=== PATIENT | female | born 1985 | race Caucasian/White ===

== ENCOUNTER 2023-08-25 08:06 | Outpatient (CLI) | payer OTHER ==
--- NOTE | 2023-08-25 14:36 | Ultrasound Report ---
PROCEDURE: Pelvic w/Transvaginal INDICATIONS: IRREGULAR MENSTRUATION TECHNIQUE: Real-time scanning was performed of the pelvic organs, with image documentation. Additional endovagi nal scanning was necessary due to incomplete visualization of the adnexal and endometrial structures by transabdominal scanning. COMPARISON: None. FINDINGS: Uterus: Uterus is anteverted and normal in size at 7.9 x 4.1 x 4.6 cm. The myometrium is homogeneou s. The endometrium measures 11.7 mm in combined thickness. Cervix and vagina are within normal limi ts. Ovaries: The right ovary measures 2.2 x 0.9 x 1.2 cm, with a calculated ovarian volume of 1.2 cc. T he left ovary measures 2.2 x 1.2 x 2.3 cm, with a calculated ovarian volume of 3.2 cc. The ovaries h ave a normal sonographic appearance. Less than 12 follicles can be seen in each ovary. No adnexal m asses are seen. No cystic lesions measuring greater than 3 cm. Other: No pathologic free abdominal or pelvic fluid. IMPRESSION: 1.Endometrial thickness is 11.7 mm. 2.Normal sonographic appearance of the bilateral ovaries. Reviewed by: Christiano Barnett MD on 08/25/2023 2:34 PM PDT Approved by: Christiano Barnett MD on 08/25/2023 2:34 PM PDT Station ID: [id number]
== END 2023-08-25 08:07 | disposition home or self-care (01) ==
LOC: DI 08:06
PROVIDERS: ATTEND Physician Assistant
DX: N92.6 Irregular menstruation, unspecified (principal)

== ENCOUNTER 2023-11-20 07:06 | Outpatient (CLI) | payer OTHER ==
[~2023-11-20 07:06] MED LIST: GADOTERATE MEGLUMINE 7.5 MMOL/15 ML VIAL ONE
[2023-11-20] MEDS: GADOTERATE MEGLUMINE 7.5 MMOL/15 ML VIAL IVP ONE (08:08)
--- NOTE | 2023-11-20 09:14 | MRI Report ---
PROCEDURE: Pelvis W/WO INDICATIONS: PELVIC PAIN CONTRAST: CLARISCAN 12.8 ML TECHNIQUE: Coronal ultra fast SE, sagittal breath-hold T2 FSE; axial T1 FSE with and without fat saturation thro ugh the pelvis. Optional long- and short-axis uterine nonbreath-hold T2 FSE through the uterus. Sag ittal or axial dynamic ultra fast GE during administration of contrast. Post-contrast axial or coron al ultra fast GE / 2-D spoiled GE with fat saturation from the iliac crests to the symphysis. Option al diffusion weighted imaging and ADC may be performed. COMPARISON: Pelvic ultrasound 08/25/2023. FINDINGS: Image quality: Excellent. Uterus: Uterus is retroverted and normal in size measuring 7.4 cm in length. Endometrium is normal in thickness measuring up to 6 mm. Junctional zone is normal in thickness at 12 mm or less. Adnexa: Left ovary has a normal appearance. There are small left ovarian follicles. No significant le ft ovarian cyst. T2 hypointense oval nodule in the region of the right adnexa measuring 2.1 x 1.5 x 1.4 cm, (01/23 and /). T1 isointense signal, no restricted diffusion, and homogeneous enhancement similar to the left ovary. Urinary system: Bladder wall is normal in thickness. Distal ureters are non distended. Urethra antonio ears normal in morphology. Nodes and vessels: No pelvic or inguinal adenopathy by size criteria. Iliac vessels are normal in s ize. Bowel and peritoneum: No pathologic free pelvic fluid. Inferior colon and small bowel loops are nor mal in caliber. Soft tissues: No inguinal hernias. No findings of pelvic floor incompetence in the absence of provo cation. Bones: Marrow demonstrates normal overall signal. Suspect bilateral L5 pars defect. IMPRESSION: 1. Endometrium measures 6 mm. No uterine adenomyosis. 2. T2 hypointense nodule in the region of the right adnexa measuring 2.1 cm. Favor benign etiology. P rimary diagnostic considerations include a right ovary with paucity of follicles, small fibroma, or e xophytic fibroid. This doesn't have a typical appearance of an endometrioma. Recommend follow-up pelv ic MRI or ultrasound in a few months. 3. No free fluid. Reviewed by: Shemar Hayden MD on 11/20/2023 9:13 AM PDT Approved by: Shemar Hayden MD on 11/20/2023 9:13 AM PDT Station ID: [id number]
== END 2023-11-20 07:07 | disposition home or self-care (01) ==
LOC: DI 07:06
PROVIDERS: ATTEND Nurse Practitioner
DX: R19.03 Right lower quadrant abdominal swelling, mass and lump (principal); R10.2 Pelvic and perineal pain; N93.9 Abnormal uterine and vaginal bleeding, unspecified